=== PATIENT | male | born 1945 | race Caucasian/White ===

== ENCOUNTER 2018-07-10 21:02 | Emergency (ER) | payer MEDICARE ==
[~2018-07-10] VITALS: Ht 175.3 cm; Wt 90.3 kg
--- OUTSIDE RECORDS SUMMARY | 2018-07-10 21:06 | XMS REPORT | Clinical Summary ---
Author Author [facility] Organization [facility] Address Unknown Phone Unavailable Care Team Providers Care Head Loader Name Role Phone Dayday Murphy MD PCP Allergies No Known Allergies Medications End Date Status Medication Sig Dispensed Refills Start Date Active gemfibrozil (LOPID) 600 Take 600 mg 0 MG tablet by mouth 2 (two) times a day before meals. Active metoprolol succinate XL Take 200 mg 0 (TOPROL-XL) 200 mg 24 hr by mouth tablet daily. Active amlodipine-benazepril Take 1 0 (LOTREL) 10-20 mg per capsule by capsule mouth daily. Active pravastatin (PRAVACHOL) Take 40 mg by 0 40 MG tablet mouth daily. Active glipiZIDE (GLUCOTROL) 10 Take 10 mg by 0 MG tablet mouth 2 (two) times a day before meals. Active metFORMIN (GLUCOPHAGE) Take 850 mg 0 850 mg tablet by mouth 2 (two) times a day with meals. Active diclofenac (VOLTAREN) 75 Take 75 mg by 0 MG EC tablet mouth 2 (two) times a day. Active spironolactone Take 25 mg by 0 (ALDACTONE) 25 MG tablet mouth daily. Active HYDROcodone-acetaminophen Take 1 tablet 0 (NORCO) 5-325 mg per by mouth tablet every 4 (four) hours as needed for moderate pain. Active Problems Not on file Encounters Care Team Description Date Type Specialty Samuel Koch MD Essential hypertension (Primary Dx) 10/22/2017 Emergency Emergency Medicine after 07/09/2017 Social History Date Tobacco Use Types Packs/Day Years Used Former Smoker Smokeless Tobacco: Former User Alcohol Use Drinks/Week oz/Week Comments No Sex Assigned at Date Recorded Not on file Industry Job Start Date Occupation Not on file Not on file Not on file Travel End Travel History Travel Start No recent travel history available. Last Filed Vital Signs Time Taken Vital Sign Reading 10/22/2017 10:15 PM CDT Blood Pressure 149/70 10/22/2017 10:15 PM CDT Pulse 64 10/22/2017 8:06 PM CDT Temperature 37.3 C (99.2 F) 10/22/2017 10:15 PM CDT Respiratory Rate 21 10/22/2017 10:15 PM CDT Oxygen Saturation 95% - Inhaled Oxygen - Concentration - Weight - 10/22/2017 8:06 PM CDT Height 175.3 cm (5' 9") - Body Mass Index - Plan of Treatment Not on file Procedures Comments Procedure Name Priority Date/Time Associated Diagnosis B NATRIURETIC PEPTIDE STAT 10/22/2017 9:10 PM CDT HC COMPLETE BLD COUNT STAT 10/22/2017 W/AUTO DIFF 9:10 PM CDT ECG 12-LEAD STAT 10/22/2017 9:00 PM CDT ECG ED PRELIMINARY Routine 10/22/2017 INTERPRETATION 8:51 PM CDT ZZESTIMATED GFR STAT 10/22/2017 8:18 PM CDT TROPONIN STAT 10/22/2017 8:18 PM CDT COMPREHENSIVE METABOLIC STAT 10/22/2017 PANEL 8:18 PM CDT after 07/09/2017 Results * CBC with platelet and differential (10/22/2017 9:10 PM CDT) WBC 8.4 4.2 - 11.0 k/uL [facility] RBC 4.47 4.04 - 5.86 m/uL [facility] HGB 13.3 13.0 - 17.3 g/dL [facility] HCT 40.5 34.0 - 45.0 % [facility] MCV 90.6 80.0 - 98.0 fL [facility] MCH 29.8 27.0 - 34.0 pg [facility] MCHC 32.8 31.5 - 36.5 g/dL [facility] RDW - SD 42.8 37.0 - 51.0 fL [facility] MPV 10.9 (H) 7.4 - 10.4 fL [facility] Platelet count 96 (L) 150 - 400 k/uL [facility] Nucleated RBC 0.00 /100 WBC [facility] Neutrophils 74.0 (H) 36.0 - 66.0 % [facility] Lymphocytes 14.3 (L) 24.0 - 44.0 % [facility] Monocytes 8.5 (H) 0.0 - 6.0 % [facility] Eosinophils 2.3 0.0 - 6.0 % [facility] Basophils 0.5 0.0 - 1.2 % [facility] OF PATHOLOGY AND GENOMIC MEDICINE Immature granulocytes 0.4 0.0 - 1.0 % [facility] Specimen Blood Performing Organization Address City/[facility] [place] [address] PATHOLOGY AND GENOMIC MEDICINE * B natriuretic peptide (10/22/2017 9:10 PM CDT) BNP 58 0 - 100 pg/mL [facility] PATHOLOGY AND GENOMIC MEDICINE Specimen Blood Performing Organization Address City/[facility] [place] [address] PATHOLOGY AND GENOMIC MEDICINE * ECG 12 lead (10/22/2017 9:00 PM CDT) Ventricular rate 74 [facility] Atrial rate 74 [facility] OK interval 152 [facility] QRSD interval 206 [facility] QT interval 474 [facility] QTC interval 526 [facility] P axis 1 48 [facility] QRS axis 1 260 [facility] T wave axis 81 [facility] EKG impression Electronic ventricular [facility] MUSE pacemaker-In automated comparison with ECG of 23-FEB-2014 10:58,-Vent. rate has increased BY 14 BPM- Performing Organization Address City/[facility] Phone Number [facility] MUSE [address] [place] [address] * ECG ED Preliminary Interpretation - NOT AN ORDER (10/22/2017 8:51 PM CDT) Narrative Performed At Samuel Koch MD 10/22/20179:56 PM ECG ED Preliminary Interpretation - Not an Order Performed by: SAMUEL KOCH Authorized by: SAMUEL KOCH ECG reviewed by ED Physician in the absence of a urban design consultant: yes Previous ECG: Previous ECG:Compared to current Comparison ECG info:Increased ventricular rate by 14 bpm Similarity:Changes noted (02/23/14) Interpretation: Interpretation: normal Rate: ECG rate:74 ECG rate assessment: normal Rhythm: Rhythm: paced Pacing: Capture:Complete Type of pacing:Ventricular Ectopy: Ectopy: none QRS: QRS axis:Normal QRS intervals:Normal Conduction: Conduction: normal ST segments: ST segments:Normal T waves: T waves: normal Comments: Read at 21:00. * Estimated GFR (10/22/2017 8:18 PM CDT) GFR Non Af Amer 50 (A) mL/min/1.73 m2 [facility] GFR Af Amer 60 mL/min/1.73 m2 [facility] Comment: PATHOLOGY AND Chronic kidney disease: <60 GENOMIC MEDICINE mL/min/1.73m2 Kidney failure: <15 mL/min/1.73m2 The estimated GFR is calculated from the IDMS-traceable Modification of Diet in Renal Disease Equation. The accuracy of the calculation is poor when the creatinine is normal. Calculated values >90 mL/min/1.73m2 are not reported. This equation has not been validated in children (<18 years), women, the elderly (>70 years), or ethnic groups other than Caucasians and Americans. Specimen Plasma specimen Performing Organization Address City/State/Zipcode Phone Number [facility] [address] [place] [address] PATHOLOGY AND GENOMIC MEDICINE * Troponin (10/22/2017 8:18 PM CDT) Troponin <0.30 0.00 - 0.30 ng/mL [facility] Comment: PATHOLOGY AND 0.11 - 1.49 GENOMIC MEDICINE ng/mlMay indicate increased risk of acute coronary syndrome. >=1.5 ng/ml Consistent with acute myocardial infarction. The diagnostic value of a single normal or non-diagnostic result is questionable.Serial samples at 2-6 hour intervals are required to rule out acute myocardial injury. Specimen Plasma specimen Performing Organization Address City/State/Zipcode Phone Number [facility] [place] [address] PATHOLOGY AND GENOMIC MEDICINE * Comprehensive metabolic panel (10/22/2017 8:18 PM CDT) Sodium 142 135 - 150 mEq/L [facility] Potassium 5.6 (H) 3.5 - 5.0 mEq/L [facility] Chloride 109 98 - 112 mEq/L [facility] CO2 22 (L) 24 - 31 mmol/L [facility] Anion gap 11@ANIO 7 - 15 mEq/L [facility] BUN 26 (H) 7 - 18 mg/dL [facility] Creatinine 1.40 (H) 0.70 - 1.20 mg/dL [facility] Glucose 182 (H) 65 - 100 mg/dL [facility] Calcium 10.0 8.8 - 10.2 mg/dL [facility] Protein 7.9 6.3 - 8.3 g/dL [facility] Albumin 4.2 3.5 - 5.0 g/dL [facility] A/G ratio 1.1 0.7 - 3.8 [facility]IC[facility] Alkaline phosphatase 98 0 - 129 U/L [facility]IC[facility] AST 26 10 - 50 U/L [facility]IC[facility] ALT 19 5 - 50 U/L [facility] MEDICINE Total bilirubin 0.4 0.2 - 1.2 mg/dL [facility]IC[facility] Specimen Plasma specimen Performing Organization Address City/State/Zipcode Phone Number [facility] [place] [address] PATHOLOGY AND GENOMIC MEDICINE after 07/09/2017 Insurance Payer Benefit Subscriber ID Type Phone Address Plan / Group [employer] MEDICARE AETNA xxxxxxxx HMO MEDICARE HMO/PPO [facility] [employer] xxxxxxxxx ADMIN Advance Directives Patient has advance care planning documents on file. For more information, stephani sanchez contact: Nathaniel Wolff [address] [place] [address]
[2018-07-10] MEDS ORDERED: ASPIRIN 325 MG TAB PO ONE (21:30)
[2018-07-10] MEDS ORDERED: HYDRALAZINE HCL 20 MG/ML VIAL IV ONE (21:45)
--- NOTE | 2018-07-10 22:10 | Diagnostic Imaging Report ---
EXAMINATION: CXR 2 VIEW - HOPD INDICATION: ^[id number] COMPARISON: None FINDINGS: PA and lateral views TUBES and LINES: Dual-lead left chest wall cardiac device in place. LUNGS: Lungs are well inflated. Mild central vascular congestion. No definite focal consolidation. PLEURA: No pleural effusion or pneumothorax. HEART AND MEDIASTINUM: The cardiac silhouette is mildly enlarged. BONES AND SOFT TISSUES: No acute osseous lesion. Soft tissues are unremarkable. UPPER ABDOMEN: No free air under the diaphragm. IMPRESSION: Mildly enlarged cardiac silhouette and mild central vascular congestion. No definite focal consolidation. Signed by: Dr. Iker Hopkins MD on 07/10/2018 10:07 PM
== END 2018-07-10 23:05 | disposition home or self-care (01) ==
LOC: FSED 21:02
DX: R07.89 Other chest pain (principal); I10 Essential (primary) hypertension; I25.10 Atherosclerotic heart disease of native coronary artery without angina pectoris; I51.9 Heart disease, unspecified; E78.5 Hyperlipidemia, unspecified
CPT/HCPCS: 71046; 80053; 82553; 83880; 84484; 85025; 85610; 93005; 99284; J0360